=== PATIENT | female | born 1990 | race Caucasian/White ===

== ENCOUNTER 2018-03-17 06:10 | Inpatient (IN) | payer OTHER ==
[2018-03-17 06:49] VITALS: BMI 29.2
[2018-03-17] MEDS ORDERED: Ondansetron PF 4 MG/2 ML Vial IVP PRN ×3 (07:09→09:18)
[2018-03-17] MEDS ORDERED: Promethazine HCl 25 MG/ML VIAL IM PRN ×2 (07:09→09:18)
[2018-03-17] MEDS ORDERED: Lactated Ringer's 1,000 ML IV SCH ×2 (07:15→09:15)
[2018-03-17] MEDS ORDERED: Bicitra 30 ML UDCUP PO SCH (07:15)
[2018-03-17] MEDS ORDERED: CEFAZOLIN/Water 2 GM/20 ML SYRINGE SLOW IVP SCH (07:15)
[2018-03-17] MEDS ORDERED: CEFAZOLIN 2 GM/50 ML BAG ONE (07:17)
[2018-03-17 07:25] LABS: Mean Corpuscular Hemoglobin 23.5 pg (27.0-31.0); Mean Corpuscular Volume 71.1 fL (78.0-98.0); Mean Platelet Volume 7.7 fL (7.4-10.4); Platelet Count 255 thou/uL (130-400); RBC Distribution Width 13.1 % (11.5-14.5); Red Blood Cell (RBC) Count 5.12 mill/uL (4.20-5.40); White Blood Cell (WBC) Count 13.3 thou/uL (4.8-10.8)
[2018-03-17] MEDS ORDERED: CEFAZOLIN 2 GM/50 ML-DEXTROSE 2 GM in Premix Bag 1 BAG IVPB SCH (07:30)
[2018-03-17] MEDS ORDERED: Morphine PF 1 MG/ML SYR ONE (07:46)
[2018-03-17] MEDS ORDERED: Oxytocin 10 UNITS/ML VIAL ONE ×2 (07:48→08:17)
[2018-03-17 08:09] LABS: HBSAg Index 0.22 S/CO (0-0.99); Hep B Surf Ag Non-Reactive S/CO (NonReactive); Syphilis Antibody Nonreactive (Nonreactive); Syphilis Antibody Index 0.04 S/CO (<1.00 Non-Reactive)
[2018-03-17] MEDS ORDERED: Ondansetron PF 4 MG/2 ML Vial ONE (08:21)
[2018-03-17 08:24] LABS: Base Excess (BEa) 0.7 mEq/L (-2.0 to +3.0)
[2018-03-17] MEDS ORDERED: ePHEDrine/0.9% NaCl/PF SYRINGE 50 mg/10 ml ONE (08:26)
[2018-03-17] MEDS ORDERED: HYDROcodone/Acetaminophen 5/325 mg Tablet PO PRN ×2 (09:08)
[2018-03-17] MEDS ORDERED: diphenhydrAMINE 25 MG CAP PO PRN (09:08)
[2018-03-17] MEDS ORDERED: Zolpidem Tartrate 5 MG TAB PO PRN (09:08)
[2018-03-17] MEDS ORDERED: Lanolin Ointment 7 GM TUBE TOP PRN (09:08)
[2018-03-17] MEDS ORDERED: Simethicone Chewable 80 MG TAB PO PRN (09:08)
[2018-03-17] MEDS ORDERED: Adacel (T-DAP) 0.5 ML SYRINGE IM ONE (09:08)
[2018-03-17] MEDS ORDERED: Ondansetron HCl/PF 4 MG/2 ML Vial IVP PRN (09:15)
[2018-03-17] MEDS ORDERED: Ketorolac Tromethamine 30 MG/ML VIAL IVP SCH (09:15)
[2018-03-17] MEDS ORDERED: diphenhydrAMINE 50 MG/ML VIAL IVP PRN (09:18)
[2018-03-17] MEDS ORDERED: Naloxone HCl 0.4 mg/ml Vial IVP PRN ×2 (09:18)
[2018-03-17] MEDS ORDERED: Promethazine HCl 25 MG SUPP PR PRN (09:18)
[2018-03-17] MEDS ORDERED: Naloxone HCl 0.4 mg/ml Vial IV PRN (09:18)
[2018-03-17] MEDS ORDERED: Eucerin (Mineral Oil/Petrolatum,White) 30 gm Jar TOP PRN (09:18)
[2018-03-17] MEDS ORDERED: Ketorolac Tromethamine 30 MG/ML VIAL ONE (09:28)
[2018-03-17] MEDS ORDERED: Communication Order-Pharmacy FS SCH (09:30)
[2018-03-17] MEDS: Ketorolac Tromethamine 30 MG/ML VIAL IVP PRN ×2 (09:33→21:22)
[2018-03-17] MEDS ORDERED: NS / Oxytocin 40 units/1000ml 1,000 ML ONE (12:22)
[2018-03-17] MEDS: Ibuprofen 800 MG TAB PO SCH ×2 (13:49→22:35)
[2018-03-17] MEDS: Docusate Calcium (SURFAK) 240 MG CAP PO SCH (21:21)
[2018-03-18] MEDS: Ibuprofen 800 MG TAB PO SCH ×3 (05:48→21:31)
[2018-03-18 06:05] LABS: Hemoglobin 9.7 g/dL (12.0-16.0); Mean Corpuscular HGB CONC 32.2 g/dL (32.0-36.0); Mean Corpuscular Hemoglobin 23.6 pg (27.0-31.0); Mean Corpuscular Volume 73.2 fL (78.0-98.0); Mean Platelet Volume 7.6 fL (7.4-10.4); Platelet Count 244 thou/uL (130-400); RBC Distribution Width 13.1 % (11.5-14.5); White Blood Cell (WBC) Count 13.4 thou/uL (4.8-10.8)
--- NOTE | 2018-03-18 09:57 | DN ---
DATE OF PROCEDURE: 03/17/2018 PREOPERATIVE DIAGNOSES: 1. A 27-year-old, G2, P1, at 39 weeks and 5 days with inactive labor and spontaneous rupture of membranes at 7 cm dilated with clear fluid. 2. Complex presentation with hand and elbow unable to reduce. 3. Primary low transverse section of her complex presentation, breech at delivery. 4. Live born female, weighing 7 pounds and 15 ounces with Apgars of 3 and 8 at one and five minutes respectively. CLINICAL HISTORY: This patient is a 27-year-old female, G2, P1, with a previous vaginal delivery, who was inactive labor and presented to Labor and Delivery at 7 cm dilated. The patient ruptured right before she was checked for clear fluid. When she was checked, it was noted that there was a hand at the cervix. She was rechecked by her physician once the physician arrived and it was noted hand with infant grabbing the surgeon's finger during the check. This was unable to be reduced and the head was far behind the presentation. The patient was counseled that point in time the need for a primary low transverse section given the inability to be able to reduce in the concern for prolapse the cord. The tracing was a category 1 tracing. The patient was afebrile and after being prepped for the OR, she was taken for her spinal anesthesia. Once the patient was laid in the supine position with leftward tilt and anesthesia was adequate, the procedure went as follows. DESCRIPTION OF PROCEDURE: The incision was made in the lower abdomen in advanced manner. With a scalpel, this was carried down to the fascia and the fascia was nicked in the midline. This was extended bilaterally with a Krueger scissors. The Flower clamps were used x2 to elevate the rectus muscles off the fascial border. The inferior border was then grasped with Kochers in the same manner. The pyramidalis and rectus muscles were off the fascia. The rectus muscles were then in the midline, and the peritoneum was breeched with the surgeon's finger. This incision was then extended, and the bladder blade was placed. Bladder flap was created with Metzenbaums and Russians, and the bladder was reflected further down. The incision was then made in lower uterine segments and when the amnion was breeched, the incision was then extended bilaterally. The presenting part which was previously the hand and arm now was the feet. The both feet were pulled through the incision, then the legs and buttocks, then the abdomen. The anterior shoulder was unable to be reduced, so the surgeon's hand was beneath the baby grabbing for the posterior shoulder after the infant was turned. Once this shoulder was reduced, the anterior shoulder was able to be delivered. Then, the head was tucked by surgeon placing the finger into the baby's mouth and pushing the head out. The infant was quickly stimulated and was taken over to the bassinet for continuous stimulation and care. She voided both urine and meconium at the delivery. The section of the cord was taken for a cord gas, and the cord blood was then attempted but not able to be collected as the placenta came out immediately after the cord section was taken. The placenta was removed spontaneously intact. The uterus was unable to be exteriorized not secondary to any tethering, so the uterus was sewn inside the abdomen. It was cleansed of all debris with a dry lap, and the corners were tagged with 2 ring forceps, and the incision was then closed with an 0 Vicryl in running locking sutures, which were hemostatic. Second imbricating suture closure was performed over this one with excellent hemostasis. The bladder flap was then reapproximated with a 3-0 Vicryl, and the gutters were then cleansed of all debris. After inspecting the uterine incision and noting hemostasis, Seprafilm was placed over the anterior surface of the uterus, and the peritoneum was then closed in a running fashion. Once the peritoneum was closed, then the rectus muscles were reapproximated with [id number] sutures and the fascia was then closed in a running fashion with an 0 Vicryl with excellent hemostasis. The subcutaneous tissues were irrigated after noting the EBL. The subcutaneous tissues were then reapproximated with interrupted sutures of 2-0 plain, and the skin was then closed with a 4-0 Monocryl with excellent hemostasis. Steri-Strips and Mastisol were placed over these incisions, and the pressure dressing with Tegaderm, Telfa, and 4x4s was placed. The patient tolerated the procedure well. She was cleansed and expressed, and transferred to a rcorning to go the recovery room in satisfactory condition. All needle, sponge, lap, and instrument counts were correct x2 prior to the patient leaving the OR. The blood gas results were noted and again, the patient was able to recover in satisfactory condition with her . The again was vigorous after her 5-minute assessment, and the pH of the cord blood gas was 7.24. There were no other issues surrounding this admission. Job ID: [id number]
[2018-03-18] MEDS: Prenatal Vitamin 1 TAB PO SCH (10:36)
[2018-03-18] MEDS: Docusate Calcium (SURFAK) 240 MG CAP PO SCH ×2 (10:36→21:31)
[2018-03-19] MEDS: Ibuprofen 800 MG TAB PO SCH ×3 (06:01→21:54)
[2018-03-19] MEDS: Docusate Calcium (SURFAK) 240 MG CAP PO SCH ×2 (08:50→21:54)
[2018-03-19] MEDS: Prenatal Vitamin 1 TAB PO SCH (08:50)
[2018-03-20] MEDS: Ibuprofen 800 MG TAB PO SCH ×2 (05:28→13:55)
[2018-03-20 08:52] VITALS: BP 122/67; TEMP 97.5
[2018-03-20] MEDS: Prenatal Vitamin 1 TAB PO SCH (09:39)
[2018-03-20] MEDS: Docusate Calcium (SURFAK) 240 MG CAP PO SCH (09:39)
== END 2018-03-20 14:25 | disposition home or self-care (01) | DRG 788 ==
LOC: L&D/OP 06:10 → L&D 07:09 → 3SW 11:51
PROVIDERS: ADMIT Obstetrics & Gynecology; ATTEND Obstetrics & Gynecology
PROC: 10D00Z1 Extraction of Products of Conception, Low, Open Approach (ICD-10-PCS; principal; 2018-03-17)
DX: O32.1XX0 Maternal care for breech presentation, not applicable or unspecified (principal); Z3A.39 39 weeks gestation of pregnancy; Z37.0 Single live birth
CPT/HCPCS: 36415; 51702; 82805; 85027; 86780; 86850; 86900; 86901; 87340; 99285; J1885; J2274; J2310; J2405; J2590